=== PATIENT | male | born 1950 ===

== ENCOUNTER 2020-05-16 21:28 | Inpatient (IN) | payer SELFPAY ==
[~2020-05-16] VITALS: Ht 170.2 cm; Wt 77.5 kg
--- NOTE | 2020-05-16 21:57 | NUR ---
PT. TO ROOM FROM LOBBY, IV ESTABLISHED, BLOOD DRAWN.
[2020-05-16] MEDS ORDERED: SODIUM CHLORIDE FLUSH 10ML SYR IVF ONE (22:00)
[2020-05-16 22:02] LABS: BASOPHILS % (AUTO) 1 % (0-1); EOSINOPHILS % (AUTO) 2 % (1-7); LYMPHOCYTES % (AUTO) 25 % (22-44); MD NO; MEAN CORPUSCULAR HGB CONC 34.1 g/dL (33.2-36.2); MONOCYTES % (AUTO) 6 % (2-9); NEUTROPHILS % (AUTO) 66 % (42-75); PLATELET COUNT 260 x10^3/uL (130-400); RED BLOOD COUNT 5.08 x10^6/uL (4.38-5.82); RED CELL DISTRIBUTION WIDTH 14.1 % (9.4-14.8)
--- NOTE | 2020-05-16 22:06 | NUR ---
PT. TO ED WITH GRANDDAUGHTER. PAMELA SWING RIDE OPERATOR IN TO EVAL PT. AND DISCUSS POC. PT. REPORTS FEELING DIZZY BEFORE BED TONIGHT. AT HOME ELEVATED B/P AND ELEVATED FSBS(324) UPON CHECKING. PT. TOOK HIS INSULIN AND CAME TO ED. C/O MILD DIZZINESS AT THIS TIME. DENIES ANY CP/SOB/WILLARD. EKG DONE IN TRIAGE AND PRESENTED TO ERP. ALL MONITORS PLACED.
[2020-05-16 22:14] LABS: ALANINE AMINOTRANSFERASE 21 U/L (12-78); ALBUMIN 2.6 g/dL (3.4-5.0); ANION GAP 4 mmol/L (5-15); CHLORIDE 110 mmol/L (98-107); CREATININE 2.51 mg/dL (0.7-1.3)
[2020-05-16] MEDS ORDERED: hydrALAzine 20 MG/ML, 1ML ONE (22:18)
[2020-05-16 22:19] LABS: ALKALINE PHOSPHATASE 113 U/L (45-117); BILIRUBIN,TOTAL 0.3 mg/dL (0.2-1.0); TOTAL PROTEIN 6.9 g/dL (6.4-8.2); TROPONIN I < 0.015 ng/mL (0.000-0.045)
[2020-05-16] MEDS ORDERED: hydrALAzine 20 MG/ML, 1ML IV ONE ×2 (22:30→23:00)
[2020-05-16] MEDS ORDERED: SODIUM CHLORIDE 0.9% 1,000ML IVBOLUS ONE (22:30)
[2020-05-16] MEDS ORDERED: MECLIZINE CHEWABLE 25 MG TAB PO ONE (23:00)
[2020-05-16] MEDS ORDERED: MECLIZINE CHEWABLE 25 MG TAB ONE (23:03)
--- NOTE | 2020-05-16 23:10 | NUR ---
LATE ENTRY: PT. C/O INCREASED DIZZINESS; DISCUSSED WITH PROVIDER AND NEW ORDERS RECEIVED. PT. ALSO C/O NEW ONSET CP. NEW EKG OBTAINED AND PRESENTED TO DR. LAY.
[2020-05-16] MEDS ORDERED: ASPIRIN 81 MG TABLET CHEW ONE (23:57)
[2020-05-17] MEDS ORDERED: ASPIRIN 81 MG TABLET CHEW PO ONE
--- NOTE | 2020-05-17 00:06 | NUR ---
VS UPDATED; PT. MEDICATED PER JUN. DISCUSSED NEW B/P WITH DR. LAY. ORDERS FOR CLONODINE CANCELLED AND NEW ORDERS RECEIVED. PT. REPORTS DIZZINESS AND CP ARE NOW GONE.
[2020-05-17] MEDS ORDERED: NITROGLYCERIN OINT 2%, 1GM TP ONE ×2 (00:11→00:30)
--- NOTE | 2020-05-17 01:05 | NUR ---
DR. MAYERS IN TO EVAL PT. FOR ADMISSION.
[2020-05-17] MEDS ORDERED: METF500T17 PO (01:06)
[2020-05-17] MEDS ORDERED: TELM40TA PO (01:06)
[2020-05-17] MEDS ORDERED: [UNRECOGNIZED DRUG - OTHER] PO (01:06)
[2020-05-17] MEDS ORDERED: INSU100V8 SQ (01:06)
[2020-05-17] MEDS ORDERED: SITA100T PO (01:06)
--- NOTE | 2020-05-17 01:27 | NUR ---
1ST ATTEMPT TO CALL REPORT TO FLOOR.
[2020-05-17] MEDS ORDERED: PROMETHAZINE 25 MG/ML, 1ML IM PRN (01:30)
[2020-05-17] MEDS ORDERED: DOCUSATE 100 MG CAPSULE PO PRN (01:30)
[2020-05-17] MEDS ORDERED: NITROGLYCERIN 0.4 MG BOTTLE (25 TABS) SL PRN (01:30)
[2020-05-17] MEDS ORDERED: ONDANSETRON 2MG/ML, 2ML IVPush PRN (01:30)
[2020-05-17] MEDS ORDERED: POLYETHYLENE GLYCOL 17 GM PACKET PO PRN (01:30)
[2020-05-17] MEDS ORDERED: ONDANSETRON ODT 4 MG PO PRN (01:30)
[2020-05-17] MEDS ORDERED: hydrALAzine 20 MG/ML, 1ML IVPush PRN (01:30)
[2020-05-17] MEDS ORDERED: BISACODYL 10 MG SUPP PR PRN (01:30)
[2020-05-17] MEDS ORDERED: ACETAMINOPHEN 325 MG TABLET PO PRN (01:30)
[2020-05-17] MEDS ORDERED: morphine SULFATE 10 MG/ML, 1ML IVPush PRN (01:30)
[2020-05-17] MEDS ORDERED: OXYcodone IR 5MG TABLET PO PRN (01:30)
--- NOTE | 2020-05-17 01:36 | NUR ---
REPORT TO HELLEN HAIRSTON(TRAINING WITH HELLEN GEORGE). FLOOR READY FOR PT. TRANSPORT.
[2020-05-17 02:38] VITALS: BP 186/92
[2020-05-17 03:02] VITALS: BP 186/92
[2020-05-17] MEDS: HEPARIN 5,000 UNITS/ML, 1ML SQ SCH ×3 (03:04→17:14)
[2020-05-17 05:12] LABS: BASOPHILS % (AUTO) 1 % (0-1); EOSINOPHILS % (AUTO) 1 % (1-7); LYMPHOCYTES % (AUTO) 14 % (22-44); MEAN CORPUSCULAR HGB CONC 33.9 g/dL (33.2-36.2); MEAN PLATELET VOLUME 8.2 fL (7.4-10.4); MONOCYTES % (AUTO) 5 % (2-9); NEUTROPHILS % (AUTO) 79 % (42-75); PLATELET COUNT 252 x10^3/uL (130-400); RED BLOOD COUNT 4.64 x10^6/uL (4.38-5.82); RED CELL DISTRIBUTION WIDTH 13.6 % (9.4-14.8)
[2020-05-17 05:18] LABS: MD NO
[2020-05-17 05:26] LABS: ALBUMIN 2.4 g/dL (3.4-5.0); ANION GAP 9 mmol/L (5-15); CALCIUM 7.8 mg/dL (8.5-10.1); CHLORIDE 113 mmol/L (98-107)
[2020-05-17 05:36] LABS: ALANINE AMINOTRANSFERASE 22 U/L (12-78); ALKALINE PHOSPHATASE 94 U/L (45-117); BILIRUBIN,TOTAL 0.3 mg/dL (0.2-1.0); CHOL/HDL RATIO 7.3; CHOLESTEROL, TOTAL 211 mg/dL (140-239); CREATININE 2.17 mg/dL (0.7-1.3); HDL CHOL % 14 % (26-37); HDL CHOLESTEROL (DIRECT) 29 mg/dL (40-60); LDL CHOLESTEROL,CALCULATED 108 mg/dL (54-169); LDL/HDL RATIO 3.7 (0.5-3.0); TRIGLYCERIDES 369 mg/dL (50-200); TROPONIN I < 0.015 ng/mL (0.000-0.045); VLDL CHOLESTEROL 74 mg/dL (0-25)
[2020-05-17] MEDS: ASPIRIN 325 MG TABLET EC PO SCH (06:10)
[2020-05-17] MEDS ORDERED: DILTIAZEM 30 MG TABLET PO SCH (06:30)
[2020-05-17] MEDS: INSULIN LISPRO 100 UNITS/ML, PEN SQ-INSULIN SCH ×4 (07:00→20:29)
[2020-05-17 07:48] VITALS: BP 172/89
[2020-05-17 08:28] LABS: TROPONIN I < 0.015 ng/mL (0.000-0.045)
[2020-05-17] MEDS ORDERED: REGADENOSON 0.4 MG/5 ML SYRINGE ONE (10:24)
[2020-05-17 15:30] VITALS: BP 154/88
[2020-05-17 20:15] VITALS: BP 172/91
[2020-05-18] MEDS: HEPARIN 5,000 UNITS/ML, 1ML SQ SCH ×2 (01:31→09:34)
[2020-05-18 01:34] VITALS: BP 184/92
[2020-05-18 02:19] VITALS: BP 174/88
[2020-05-18 02:57] VITALS: BP 164/85
[2020-05-18 05:02] LABS: BASOPHILS % (AUTO) 1 % (0-1); EOSINOPHILS % (AUTO) 2 % (1-7); LYMPHOCYTES % (AUTO) 17 % (22-44); MEAN CORPUSCULAR HEMOGLOBIN 29.1 pg (27.5-34.5); MEAN CORPUSCULAR HGB CONC 33.9 g/dL (33.2-36.2); MONOCYTES % (AUTO) 5 % (2-9); NEUTROPHILS % (AUTO) 75 % (42-75); PLATELET COUNT 247 x10^3/uL (130-400); RED BLOOD COUNT 4.55 x10^6/uL (4.38-5.82); RED CELL DISTRIBUTION WIDTH 13.9 % (9.4-14.8)
[2020-05-18 05:03] LABS: MD NO
[2020-05-18 05:16] LABS: CHLORIDE 113 mmol/L (98-107)
[2020-05-18 05:21] LABS: ALBUMIN 2.3 g/dL (3.4-5.0); ANION GAP 4 mmol/L (5-15); CALCIUM 8.2 mg/dL (8.5-10.1); CREATININE 2.24 mg/dL (0.7-1.3)
[2020-05-18] MEDS: ASPIRIN 325 MG TABLET EC PO SCH (05:45)
[2020-05-18 05:47] VITALS: BP 159/86
[2020-05-18] MEDS ORDERED: LEVOTHYROXINE 50 MCG TABLET PO SCH (06:00)
[2020-05-18] MEDS: INSULIN LISPRO 100 UNITS/ML, PEN SQ-INSULIN SCH ×2 (07:00→11:00)
[2020-05-18 08:26] VITALS: BP 178/87
[2020-05-18] MEDS ORDERED: HYDR-3343 PO (12:27)
[2020-05-18] MEDS ORDERED: CLON0.2T PO (12:27)
[2020-05-18] MEDS ORDERED: LEVO50TA PO (12:27)
[2020-05-18 13:11] VITALS: BP 135/74
== END 2020-05-18 14:30 | disposition home or self-care (01) | DRG 304 ==
LOC: ED 22:43 → INTOOBSV 05-17 00:10 → EDIP 05-17 00:10 → 5SO 05-17 02:11 → OBSVTOIN 05-17 12:51 → DCLOUNGE 05-18 14:17
PROVIDERS: ADMIT Internal Medicine; ATTEND Internal Medicine
DX: I16.1 Hypertensive emergency (principal); N17.0 Acute kidney failure with tubular necrosis; I50.32 Chronic diastolic (congestive) heart failure; I37.1 Nonrheumatic pulmonary valve insufficiency; I13.0 Hypertensive heart and chronic kidney disease with heart failure and stage 1 through stage 4 chronic kidney disease, or unspecified chronic kidney disease; N18.9 Chronic kidney disease, unspecified; E11.65 Type 2 diabetes mellitus with hyperglycemia
CPT/HCPCS: 36415; 71045; 78452; 80053; 80061; 80069; 82962; 83036; 83690; 83735; 84439; 84443; 84484; 85025; 93005; 93017; 93306; 96374; 99291; G0378; J1644; J2785; A9502; J0360; J1815; J7030

== ENCOUNTER 2020-05-21 23:58 | Emergency (ER) | payer SELFPAY ==
[~2020-05-21] VITALS: Ht 170.2 cm; Wt 76.2 kg
[~2020-05-21 23:58] MED LIST: CLON0.2T PO; HYDR-3343 PO; INSU100V8 SQ; LEVO50TA PO; METF500T17 PO; SITA100T PO; TELM40TA PO; [UNRECOGNIZED DRUG - OTHER] PO
--- NOTE | 2020-05-22 00:33 | NUR ---
pt was recently dc'd from hospital after receiving treatment. pt states that since taking the meds they placed him on he feels dizzy and warm. pt states he feels like hes sweating eventhough he is not. denies anyone at home being sick recently. pt placed on spo2/bp/ecg monitoring. granddaughter at bs. janelle walker at bs for eval and poc. [facility]. waiting for labs and rads
[2020-05-22 00:47] LABS: BASOPHILS % (AUTO) 1 % (0-1); EOSINOPHILS % (AUTO) 1 % (1-7); LYMPHOCYTES % (AUTO) 13 % (22-44); MEAN CORPUSCULAR HEMOGLOBIN 29.2 pg (27.5-34.5); MEAN CORPUSCULAR HGB CONC 34.3 g/dL (33.2-36.2); MEAN PLATELET VOLUME 8.3 fL (7.4-10.4); MONOCYTES % (AUTO) 6 % (2-9); NEUTROPHILS % (AUTO) 80 % (42-75); PLATELET COUNT 254 x10^3/uL (130-400); RED BLOOD COUNT 4.55 x10^6/uL (4.38-5.82); RED CELL DISTRIBUTION WIDTH 13.7 % (9.4-14.8)
[2020-05-22 00:48] LABS: MD NO
[2020-05-22 00:53] LABS: ALANINE AMINOTRANSFERASE 46 U/L (12-78); ALBUMIN 2.9 g/dL (3.4-5.0); ANION GAP 11 mmol/L (5-15); CALCIUM 8.2 mg/dL (8.5-10.1); CHLORIDE 110 mmol/L (98-107); CREATININE 2.85 mg/dL (0.7-1.3)
[2020-05-22 00:57] LABS: ALKALINE PHOSPHATASE 96 U/L (45-117); BILIRUBIN,TOTAL 0.4 mg/dL (0.2-1.0); TOTAL PROTEIN 6.9 g/dL (6.4-8.2); TROPONIN I < 0.015 ng/mL (0.000-0.045)
--- NOTE | 2020-05-22 01:08 | NUR ---
patient resting in bed in NAD. call cheek in reach. daughter at bedside. patient states he feels hot. oral temp obtained and afebrile..
--- NOTE | 2020-05-22 02:15 | NUR ---
discharge instructions reviewed with patient and grand-daughter at bedside to translate. discharge instructions provided in bulgarian and chinese. patient verbalized back to stop taking his clonidine by answering what medication he would stop taking. patient had no further questions and no pain at time of discharge. ambulated to bathroom and lobby with steady gait. all persnal belongings with patient on discharge. IV removed per dc protocol. No SOB, no CP. BP and all other vitals stable on discharge.
[2020-05-22 02:44] VITALS: BP 145/83
== END 2020-05-22 02:47 | disposition home or self-care (01) ==
LOC: ED 05-22 00:18
DX: R42 Dizziness and giddiness (principal); I12.9 Hypertensive chronic kidney disease with stage 1 through stage 4 chronic kidney disease, or unspecified chronic kidney disease; E11.22 Type 2 diabetes mellitus with diabetic chronic kidney disease; N18.9 Chronic kidney disease, unspecified; R07.89 Other chest pain
CPT/HCPCS: 36415; 71045; 80053; 84484; 85025; 93005; 99285

== ENCOUNTER 2020-05-23 09:25 | Inpatient (IN) | payer SELFPAY ==
[~2020-05-23] VITALS: Ht 170.2 cm; Wt 75.8 kg
--- NOTE | 2020-05-23 10:03 | NUR ---
PT PRESENTS WITH HIGH BLOOD PRESSURE. PT DENIES ANY HEADACHE, SOB, CP OR BLURRY VISION. FAMILY STATES THAT PT RAN OUT OF HIS ANTIHYPERTENSIVE MEDICATION LAST WEEK AND WAS PRESCRIBED A DIFFERENT ONE A COUPLE DAYS AGO.
[2020-05-23] MEDS ORDERED: SODIUM CHLORIDE FLUSH 10ML SYR IVF ONE (10:30)
[2020-05-23 10:32] LABS: BASOPHILS % (AUTO) 1 % (0-1); EOSINOPHILS % (AUTO) 2 % (1-7); LYMPHOCYTES % (AUTO) 23 % (22-44); MONOCYTES % (AUTO) 8 % (2-9); NEUTROPHILS % (AUTO) 65 % (42-75); PLATELET COUNT 246 x10^3/uL (130-400); RED BLOOD COUNT 4.54 x10^6/uL (4.38-5.82); RED CELL DISTRIBUTION WIDTH 13.9 % (9.4-14.8)
[2020-05-23 10:33] LABS: MD NO
[2020-05-23 10:40] LABS: ALANINE AMINOTRANSFERASE 36 U/L (12-78); ALBUMIN 2.8 g/dL (3.4-5.0); ANION GAP 9 mmol/L (5-15); CALCIUM 8.4 mg/dL (8.5-10.1); CHLORIDE 111 mmol/L (98-107)
[2020-05-23 10:42] LABS: ALKALINE PHOSPHATASE 95 U/L (45-117); BILIRUBIN,TOTAL 0.5 mg/dL (0.2-1.0); TOTAL PROTEIN 6.9 g/dL (6.4-8.2)
--- NOTE | 2020-05-23 11:25 | NUR ---
PT RESTING COMFORTABLY IN BED
[2020-05-23] MEDS ORDERED: LABETALOL 5MG/ML, 20ML IVPush ONE (11:30)
[2020-05-23] MEDS ORDERED: SODIUM CHLORIDE FLUSH 10ML SYR IVF PRN (11:30)
[2020-05-23] MEDS ORDERED: LABETALOL 5MG/ML, 20ML ONE (11:30)
--- NOTE | 2020-05-23 12:00 | NUR ---
REPORT GIVEN TO HELLEN PIMENTEL.
[2020-05-23] MEDS ORDERED: AMLODIPINE 5 MG TABLET PO ONE (12:14)
[2020-05-23] MEDS ORDERED: ONDANSETRON ODT 4 MG PO PRN (12:30)
[2020-05-23] MEDS ORDERED: LABETALOL 5MG/ML, 20ML IVPush PRN (12:30)
[2020-05-23] MEDS ORDERED: ONDANSETRON 2MG/ML, 2ML IVPush PRN (12:30)
[2020-05-23] MEDS ORDERED: ACETAMINOPHEN 325 MG TABLET PO PRN (12:30)
[2020-05-23 13:22] VITALS: BP 202/97
[2020-05-23 13:23] LABS: ANION GAP 6 mmol/L (5-15); CALCIUM 8.5 mg/dL (8.5-10.1); CHLORIDE 113 mmol/L (98-107); CREATININE 2.77 mg/dL (0.7-1.3)
[2020-05-23 14:01] VITALS: BP 192/91
[2020-05-23] MEDS: INSULIN LISPRO 100 UNITS/ML, PEN SQ-INSULIN SCH ×3 (14:04→21:00)
[2020-05-23] MEDS: HEPARIN 5,000 UNITS/ML, 1ML SQ SCH ×2 (14:04→21:20)
[2020-05-23] MEDS ORDERED: DOXAZOSIN 1MG TABLET PO ONE (14:22)
[2020-05-23] MEDS: LACTATED RINGERS 1,000 ML IV SCH (14:56)
[2020-05-23 16:19] VITALS: BP 160/80
[2020-05-23 18:34] VITALS: BP 130/69
[2020-05-23] MEDS: METOPROLOL TARTRATE 50 MG TAB PO SCH (18:36)
[2020-05-23 19:27] VITALS: BP 111/62
[2020-05-23] MEDS: AMLODIPINE 5 MG TABLET PO SCH (21:21)
[2020-05-24 01:47] VITALS: BP 110/64
[2020-05-24] MEDS: LACTATED RINGERS 1,000 ML IV SCH (05:30)
[2020-05-24] MEDS: METOPROLOL TARTRATE 50 MG TAB PO SCH (05:43)
[2020-05-24] MEDS: HEPARIN 5,000 UNITS/ML, 1ML SQ SCH (05:44)
[2020-05-24] MEDS ORDERED: LEVOTHYROXINE 50 MCG TABLET PO SCH (06:00)
[2020-05-24 06:23] VITALS: BP 134/70
[2020-05-24] MEDS: INSULIN LISPRO 100 UNITS/ML, PEN SQ-INSULIN SCH ×2 (07:00→11:00)
[2020-05-24 08:30] LABS: ANION GAP 8 mmol/L (5-15); CALCIUM 7.9 mg/dL (8.5-10.1); CHLORIDE 112 mmol/L (98-107); CREATININE 2.73 mg/dL (0.7-1.3)
[2020-05-24] MEDS ORDERED: METO50TA82 PO (08:41)
[2020-05-24] MEDS ORDERED: AMLO-150 PO (08:41)
[2020-05-24] MEDS ORDERED: DOXAZOSIN 1MG TABLET PO SCH (09:00)
[2020-05-24] MEDS: AMLODIPINE 5 MG TABLET PO SCH (09:21)
[2020-05-24 11:46] VITALS: BP 131/74
== END 2020-05-24 13:25 | disposition home or self-care (01) | DRG 305 ==
LOC: ED 11:28 → EDIP 11:29 → SUATTDRO 11:45 → ED 12:05 → 4WST 12:41 → DCLOUNGE 05-24 13:05
PROVIDERS: ADMIT Family Medicine; ATTEND Family Medicine
DX: I16.1 Hypertensive emergency (principal); N17.9 Acute kidney failure, unspecified; N18.4 Chronic kidney disease, stage 4 (severe); E11.22 Type 2 diabetes mellitus with diabetic chronic kidney disease; I12.9 Hypertensive chronic kidney disease with stage 1 through stage 4 chronic kidney disease, or unspecified chronic kidney disease; K59.00 Constipation, unspecified
CPT/HCPCS: 36415; 71045; 80048; 80053; 82962; 83735; 84100; 85025; 93005; 99285; G0378; J1644; J1815; J7120